=== PATIENT | male | born 1995 | race Hispanic/Latino ===

== ENCOUNTER 2017-05-07 19:32 | Emergency (ER) | payer MEDICAID ==
[2017-05-07] MEDS ORDERED: DEXAMETHASONE SOD PHOSPHATE 10MG/ML 1ML VIAL ONE (20:11)
[2017-05-07] MEDS ORDERED: IPRATROPIUM/ALBUTEROL SULFATE 3 ML SOLUTION IH ONE (20:14)
== END 2017-05-07 20:38 | disposition home or self-care (01) ==
LOC: EDH 19:32
DX: J45.909 Unspecified asthma, uncomplicated (principal); F12.90 Cannabis use, unspecified, uncomplicated; Z72.0 Tobacco use
CPT/HCPCS: 94640; 96372; 99283; J1100

== ENCOUNTER 2017-08-02 23:48 | Emergency (ER) | payer MEDICAID | END 2017-08-03 02:08 | disposition home or self-care (01) | LOC: EDH 23:48 | DX: F41.1 Generalized anxiety disorder (principal); R06.00 Dyspnea, unspecified; F90.9 Attention-deficit hyperactivity disorder, unspecified type | CPT/HCPCS: 71046 ==

== ENCOUNTER 2017-09-05 22:08 | Emergency (ER) | payer MEDICAID ==
[2017-09-05] MEDS ORDERED: HYDROXYZINE HCL 25 MG TABLET ONE (22:34)
== END 2017-09-05 23:16 | disposition home or self-care (01) ==
LOC: EDH 22:08
DX: F41.1 Generalized anxiety disorder (principal); F90.9 Attention-deficit hyperactivity disorder, unspecified type; J45.909 Unspecified asthma, uncomplicated

== ENCOUNTER 2018-10-31 22:00 | Emergency (ER) | payer MEDICAID ==
[2018-10-31 22:35] LABS: EOSINOPHILS % (AUTO) 4.8 % (0.0-8.0); MEAN CORPUSCULAR HEMOGLOBIN 30.4 pg (27.0-33.0); MEAN CORPUSCULAR HGB CONC 33.8 g/dL (32.0-36.0); MONOCYTES % (AUTO) 7.1 % (3.0-13.0); NEUTROPHILS % (AUTO) 43.1 % (40.0-77.0); NUCLEATED RED BLOOD CELLS 0.1 % (0.0-0.19); PLATELET COUNT (AUTO) 227 K/uL (130-400); RED BLOOD CELL COUNT(AUTO) 5.34 MIL/uL (4.50-6.20); WHITE BLOOD COUNT (AUTO) 9.1 K/uL (4.8-10.8)
[2018-10-31 22:36] LABS: APPEARANCE,URINE Clear (CLEAR); BILIRUBIN,URINE Negative (NEGATIVE); COLOR,URINE Yellow (YELLOW); GLUCOSE, URINE (UA) Negative (NEGATIVE); KETONES,URINE Negative (NEGATIVE); LEUKOCYTE ESTERASE ,URINE Negative (NEGATIVE); NITRATE,URINE Negative (NEGATIVE); OCCULT BLOOD,URINE Negative (NEGATIVE); PROTEIN,URINE Negative (NEGATIVE); UROBILINOGEN,URINE 0.2 mg/dL (0.2-1.0)
[2018-10-31 22:44] LABS: CREATININE 1.1 mg/dL (0.5-1.5); POTASSIUM 3.1 mmol/L (3.5-5.1)
[2018-10-31 22:48] LABS: ALBUMIN 4.4 g/dL (3.5-5.0); BILIRUBIN,TOTAL 0.5 mg/dL (0.2-1.0); TOTAL PROTEIN, SERUM 8.3 g/dL (6.0-8.3)
[2018-10-31] MEDS ORDERED: POTASSIUM BICARB/CIT AC 25 MEQ TABLET.EFF ONE (23:10)
== END 2018-10-31 23:41 | disposition home or self-care (01) ==
LOC: EDH 22:00
DX: F41.9 Anxiety disorder, unspecified (principal); E87.6 Hypokalemia; J45.909 Unspecified asthma, uncomplicated; F90.9 Attention-deficit hyperactivity disorder, unspecified type
CPT/HCPCS: 36415; 71045; 80053; 81003; 85025; 93005

== ENCOUNTER 2018-11-03 19:24 | Emergency (ER) | payer MEDICAID | END 2018-11-03 20:06 | disposition home or self-care (01) | LOC: EDH 19:24 | DX: F41.1 Generalized anxiety disorder (principal); R06.02 Shortness of breath; J45.909 Unspecified asthma, uncomplicated; F90.9 Attention-deficit hyperactivity disorder, unspecified type ==